=== PATIENT | male | born 1990 | race African-American/Black ===

== ENCOUNTER 2016-05-17 17:06 | Emergency (ER) | payer MEDICAID ==
[~2016-05-17] VITALS: Ht 170.2 cm; Wt 66.0 kg
[2016-05-17 18:04] VITALS: BP 130/77
== END 2016-05-17 19:30 | disposition left against medical advice (07) ==
LOC: ER 17:07
DX: Z53.21 Procedure and treatment not carried out due to patient leaving prior to being seen by health care provider (principal)